=== PATIENT | female | born 1990 | race Caucasian/White ===

== ENCOUNTER 2016-11-23 18:34 | Emergency (ER) | payer BC ==
[~2016-11-23 18:34] MED LIST: AMOXICILLIN875 MG PO; AUGMENTIN875 M1 PO; BUSPAR PO; CLONAZEPAM0.5 MG PO; IBUPROFEN600 MG PO; IMITREX PO; MAGIC MOUTHWASH PO; MEDROL DOSEPAK4 MG PO; NAMENDA10 MG; TOPAMAX PO; VOLTAREN75 MG PO; WELLBUTRIN SR200 MG PO
== END 2016-11-23 20:14 | disposition home or self-care (01) ==
LOC: SED 18:34
DX: G43.909 Migraine, unspecified, not intractable, without status migrainosus (principal); R11.2 Nausea with vomiting, unspecified; F17.210 Nicotine dependence, cigarettes, uncomplicated; Z79.899 Other long term (current) drug therapy
CPT/HCPCS: 96374; 96375; 99284; J1200; J1885; J2765